=== PATIENT | female | born 1980 | race American Indian/Alaskan Native ===

== ENCOUNTER 2021-02-05 10:17 | Emergency (ER) | payer OTHER ==
[2021-02-05 10:33] VITALS: BP 139/74
--- NOTE | 2021-02-05 10:36 | Event Note ---
ED Screening Note ED Screening Note: tearful suprapubic pain on menses now This initial assessment/diagnostic orders/clinical plan/treatment(s) is/are subject to change based on patients health status, clinical progression and re- assessment by fellow clinical providers in the ED. Further treatment and workup at subsequent clinical providers discretion. Patient/guardian urged not to elope from the ED as their condition may be serious if not clinically assessed and managed. Initial orders include: ua
[2021-02-05 10:53] LABS: Bilirubin,Urine NEG (Negative); Blood,Urine MOD (Negative); Color,Urine Yellow (Yellow); Mucus,Urine FEW /HPF; Protein,Urine <15 mg/dL mg/dL (Negative); Urobilinogen,Urine < 2.0 mg/dL (<2.0)
[2021-02-05 10:56] LABS: HCG Qualitative,Urine Negative (Negative)
--- NOTE | 2021-02-05 12:06 | Emergency Department Report ---
ED Female HPI - General Chief complaint: Abdominal Pain Stated complaint: STOMACH PAIN Time Seen by Provider: 02/05/21 10:33 Source: patient Mode of arrival: Ambulatory Limitations: No Limitations - History of Present Illness Initial comments: Patient is a 40-year-old [place] female who comes to the ER complaining of suprapubic pain. She describes the pain as a constant ache. She is currently finishing her menses for the month. She denies any vaginal discharge, fever, nausea vomiting. She denies back pain. Patient is ambulatory to the emergency room with normal vital signs. She is rocking in the chair with suprapubic pain: While she is on the cell phone. Patient noted to be eating without difficulty in the waiting room. -: Gradual, days(s) Radiation: non-radiating, suprapubic Severity: moderate Quality: cramping, dull, aching Consistency: intermittent Improves with: none Worsens with: none Are you Now?: No Associated Symptoms: vaginal bleeding (On her. Currently). denies: vaginal discharge, abdominal pain, nausea/vomiting, fever/chills, headaches, loss of appetite, dysuria, hematuria, rash, seizure, shortness of breath, syncope, weakness - Related Data Sexually active: Yes Previous Rx's Medication Instructions Recorded Last Taken Type Ibuprofen [Motrin] 800 mg PO Q8HR PRN #30 tablet 02/05/21 Unknown Rx Allergies Allergy/AdvReac Type Severity Reaction Status Date / Time No Known Allergies Allergy Unverified 02/05/21 10:30 ED Review of Systems ROS: Stated complaint: STOMACH PAIN Other details as noted in HPI Comment: All other systems reviewed and negative ED Past Medical Hx - Past Medical History Previous Medical History?: Yes Additional medical history: uterine fibroid - Surgical History Past Surgical History?: No - Family History Family history: no significant - Social History Smoking Status: Never Smoker Substance Use Type: None - Medications Home Medications: Home Medications Medication Instructions Recorded Confirmed Last Taken Type Ibuprofen [Motrin] 800 mg PO Q8HR PRN #30 tablet 02/05/21 Unknown Rx ED Physical Exam - General Limitations: No Limitations General appearance: alert, in no apparent distress - Head Head exam: Present: atraumatic, normocephalic - Eye Eye exam: Present: normal appearance - ENT ENT exam: Present: mucous membranes moist - Neck Neck exam: Present: normal inspection - Respiratory Respiratory exam: Present: normal lung sounds bilaterally. Absent: respiratory distress - Cardiovascular Cardiovascular Exam: Present: regular rate, normal rhythm. Absent: systolic murmur, diastolic murmur, rubs, gallop - GI/Abdominal GI/Abdominal exam: Present: soft, normal bowel sounds - Extremities Exam Extremities exam: Present: normal inspection - Back Exam Back exam: Present: normal inspection - Neurological Exam Neurological exam: Present: alert, oriented X3 - Psychiatric Psychiatric exam: Present: normal affect, normal mood - Skin Skin exam: Present: warm, dry, intact, normal color. Absent: rash ED Course Vital Signs 02/05/21 02/05/21 02/05/21 10:32 10:33 12:25 Temperature 98.9 F Pulse Rate 101 H Respiratory 20 16 Rate Blood Pressure 139/74 O2 Sat by Pulse 98 Oximetry 02/05/21 12:29 Temperature Pulse Rate Respiratory 16 Rate Blood Pressure O2 Sat by Pulse Oximetry ED Medical Decision Making - Radiology Data Radiology results: report reviewed, image reviewed see report - Medical Decision Making Ultrasound noted. Patient then shared that she has a history of uterine fibroids. Patient states that she has never had ovarian cyst in the past. Vital Signs 02/05/21 02/05/21 02/05/21 10:32 10:33 12:25 Temperature 98.9 F Pulse Rate 101 H Respiratory 20 16 Rate Blood Pressure 139/74 O2 Sat by Pulse 98 Oximetry 02/05/21 12:29 Temperature Pulse Rate Respiratory 16 Rate Blood Pressure O2 Sat by Pulse Oximetry Vital Signs 02/05/21 02/05/21 02/05/21 10:32 10:33 12:25 Temperature 98.9 F Pulse Rate 101 H Respiratory 20 16 Rate Blood Pressure 139/74 O2 Sat by Pulse 98 Oximetry 02/05/21 12:29 Temperature Pulse Rate Respiratory 16 Rate Blood Pressure O2 Sat by Pulse Oximetry Lab Results 02/05/21 Range/Units 10:41 Urine Color Yellow (Yellow) Urine Turbidity Clear (Clear) Urine pH 6.0 (5.0-7.0) Ur Specific [place] 1.018 (1.003-1.030) Urine Protein <15 mg/dl (Negative) mg/dL Urine Glucose (UA) Neg (Negative) mg/dL Urine Ketones Neg (Negative) mg/dL Urine Blood Mod (Negative) Urine Nitrite Neg (Negative) Urine Bilirubin Neg (Negative) Urine Urobilinogen < 2.0 (<2.0) mg/dL Ur Leukocyte Esterase Neg (Negative) Urine WBC (Auto) 1.0 (0.0-6.0) /HPF Urine RBC (Auto) 8.0 (0.0-6.0) /HPF U Epithel Cells (Auto) 3.0 (0-13.0) /HPF Urine Mucus Few /HPF Urine HCG, Qual Negative (Negative) She has been educated on the findings of her urine, ultrasound: Patient being discharged home with [employer] referral. Patient medicated with Motrin in the ER with some relief. Patient verbalizes understanding of discharge plan of care. Patient is ambulatory, nontoxic [id number] and taking p.o. on discharge - Differential Diagnosis ro preg/uti/cyst Critical care attestation.: If time is entered above; I have spent that time in minutes in the direct care of this critically ill patient, excluding procedure time. ED Disposition Clinical Impression: Uterine fibroid, Ovarian cyst Disposition: TO HOME OR SELFCARE Is pt being admited?: No Does the pt Need Aspirin: No Condition: Stable Instructions: Uterine Fibroids, Ovarian Cyst, [id number], Abdominal Pain (ED) Additional Instructions: follow up with obgyn referral below warm compresses med as ordered today Prescriptions: Ibuprofen [Motrin] 800 mg PO Q8HR PRN #30 tablet PRN Reason: Pain, Moderate (4-6) Referrals: MARCIO MERCEDES MD [Staff Physician] - 3-5 Days Time of Disposition: 12:06
[2021-02-05] MEDS ORDERED: IBUPROFEN 800 MG TAB PO ONE (12:07)
--- NOTE | 2021-02-05 12:07 | Ultrasound Report ---
ULTRASOUND PELVIS COMPLETE INDICATION / CLINICAL INFORMATION: abd pain. TECHNIQUE: Transabdominal. Duplex Color Doppler used: Yes. COMPARISON: None available FINDINGS: UTERUS: Present. - Appearance (if present): Mild enlarged and heterogeneous - Size in cm (if present): 10.5 x 7.4 x 7.7. - Endometrial Complex (if present): No significant abnormality.. Thickness in cm (if measured) = 0.65 - Mass lesions: A 4.9 cm fibroid is identified in the posterior fundal region. There appears to be a small submucosal component. - Additional findings: None. RIGHT ADNEXA: The right ovary is unremarkable measuring 2.7 x 1.5 x 1.6 cm. Normal color Doppler bloo d flow. LEFT ADNEXA: The left ovary measures 3.6 x 2.3 x 2.2 cm and contains a 1.6 cm cyst. Normal color Dopp ler blood flow. URINARY BLADDER: No significant abnormality. FREE FLUID: None. ADDITIONAL FINDINGS: None. IMPRESSION: Uterine fibroid as described. 1.6 cm left ovarian cyst. Signer Name: Luis Seymour Jr, MD Signed: 02/05/2021 12:03 PM Workstation Name: [id number]
== END 2021-02-05 12:29 | disposition home or self-care (01) ==
LOC: ED 10:17
DX: D25.9 Leiomyoma of uterus, unspecified (principal); N83.209 Unspecified ovarian cyst, unspecified side; Z79.899 Other long term (current) drug therapy
CPT/HCPCS: 76856; 81001; 81025